=== PATIENT | male | born 1960 | race Caucasian/White ===

== ENCOUNTER 2022-02-16 11:07 | Outpatient (CLI) | payer OTHER | END 2022-02-16 11:08 | disposition home or self-care (01) | LOC: BICRAD 11:07 | PROVIDERS: ATTEND Internal Medicine | DX: Z02.71 Encounter for disability determination (principal); M47.816 Spondylosis without myelopathy or radiculopathy, lumbar region; Z87.81 Personal history of (healed) traumatic fracture | CPT/HCPCS: 71046; 72100 ==

== ENCOUNTER 2022-03-24 13:26 | Emergency (ER) | payer SELFPAY ==
[2022-03-24] MEDS ORDERED: Ketorolac Tromethamine 30 MG/ML VIAL ONE (15:32)
== END 2022-03-24 16:05 | disposition home or self-care (01) ==
LOC: ERS 13:26
DX: M25.511 Pain in right shoulder (principal); S92.321D Displaced fracture of second metatarsal bone, right foot, subsequent encounter for fracture with routine healing; S92.331D Displaced fracture of third metatarsal bone, right foot, subsequent encounter for fracture with routine healing; I10 Essential (primary) hypertension; J44.9 Chronic obstructive pulmonary disease, unspecified; X58.XXXD Exposure to other specified factors, subsequent encounter
CPT/HCPCS: 36416; 96372; J1885

== ENCOUNTER 2023-03-28 11:39 | Emergency (ER) | payer OTHER ==
[2023-03-28 12:21] LABS: #Basophils 0.1 thou/uL (0.0-0.2); #Eosinphils 0.2 thou/uL (0.0-0.7); #Monocytes 0.8 thou/uL (0.11-0.59); #Neutrophils 5.4 thou/uL (1.40-6.50); %Eosinophils 2.3 % (0.0-10.0); %Lymphocytes 14.6 % (21.0-51.0); %Monocytes 10.8 % (0.0-10.0); %Neutrophils 70.6 % (42.0-75.0); Hemoglobin 10.8 g/dL (14.0-18.0); Mean Corpuscular HGB CONC 33.4 g/dL (32.0-36.0); Mean Corpuscular Hemoglobin 33.3 pg (27.0-31.0); Mean Corpuscular Volume 99.7 fl (78.0-98.0); Mean Platelet Volume 8.6 fL (7.4-10.4); Platelet Count 726 10x3/uL (130-400); RBC Distribution Width 13.3 % (11.5-14.5); Red Blood Cell (RBC) Count 3.24 mill/uL (4.70-6.10); White Blood Cell (WBC) Count 7.7 10x3/uL (4.8-10.8)
[2023-03-28 12:44] LABS: ALT (SGPT) 24 U/L (8-55); AST (SGOT) 34 U/L (5-34); Albumin 3.5 g/dL (3.4-4.8); Alkaline Phosphatase 65 U/L (40-110); Anion Gap 11 mmol/L (10-20); BUN (Urea Nitrogen) 8 mg/dL (8.4-25.7); Bilirubin, Total 0.7 mg/dL (0.2-1.2); Calc. Creatinine Clearance 0 mL/min (70-130); Calcium 9.5 mg/dL (7.8-10.44); Carbon Dioxide 27 mmol/L (23-31); Chloride 102 mmol/L (98-107); Estimated GFR 97; Globulin 3.2 g/dL (2.4-3.5); Glucose 89 mg/dL (80-115); Potassium 4.2 mmol/L (3.5-5.1); Protein, Total 6.7 g/dL (5.8-8.1); Sodium 136 mmol/L (136-145)
== END 2023-03-28 13:22 | disposition home or self-care (01) ==
LOC: ERS 11:39
DX: I48.91 Unspecified atrial fibrillation (principal); I10 Essential (primary) hypertension; J44.9 Chronic obstructive pulmonary disease, unspecified; F17.220 Nicotine dependence, chewing tobacco, uncomplicated
CPT/HCPCS: 36415; 80053; 85025; 93005

== ENCOUNTER 2023-07-30 09:04 | Outpatient (CLI) | payer OTHER ==
[2023-07-30 10:46] LABS: Hematocrit 44.9 % (38.8-50.0); Hemoglobin 15.1 g/dL (13.5-17.5); Mean Corpuscular HGB CONC 33.6 g/dL (32.0-36.0); Mean Corpuscular Hemoglobin 32.7 pg (27.0-33.0); Mean Corpuscular Volume 97.2 fl (81.2-95.1); Mean Platelet Volume 9.7 fl (7.4-10.4); Platelet Count 331 10x3/uL (150-450); RBC Distribution Width 13.7 % (11.5-14.5); Red Blood Cell (RBC) Count 4.62 10x6/uL (4.32-5.72); White Blood Cell (WBC) Count 6.9 10x3/uL (3.5-10.5)
[2023-07-30 11:20] LABS: Prothrombin Time 10.4 sec (9.5-12.1)
[2023-07-30 11:26] LABS: ALT (SGPT) 44 U/L (8-55); AST (SGOT) 40 U/L (5-34); Albumin 4.1 g/dL (3.4-4.8); Alkaline Phosphatase 54 U/L (40-110); Anion Gap 14 mmol/L (10-20); BUN (Urea Nitrogen) 13 mg/dL (8.4-25.7); Bilirubin, Direct 0.2 mg/dL (0.1-0.3); Bilirubin, Total 0.5 mg/dL (0.2-1.2); Calc. Creatinine Clearance 0 mL/min (70-130); Calcium 9.4 mg/dL (7.8-10.44); Carbon Dioxide 24 mmol/L (23-31); Chloride 103 mmol/L (98-107); Estimated GFR 99; Glucose 85 mg/dL (80-115); Potassium 4.8 mmol/L (3.5-5.1); Protein, Total 7.1 g/dL (5.8-8.1); Sodium 136 mmol/L (136-145)
== END 2023-07-30 09:05 | disposition home or self-care (01) ==
LOC: LABBT 09:04
PROVIDERS: ATTEND Thoracic Surgery (Cardiothoracic Vascular Surgery)
DX: Z01.818 Encounter for other preprocedural examination (principal); T82.847A Pain due to cardiac prosthetic devices, implants and grafts, initial encounter; I25.10 Atherosclerotic heart disease of native coronary artery without angina pectoris
CPT/HCPCS: 80048; 80076; 85027; 85610; 85730; 93005; 93010

== ENCOUNTER 2023-07-31 06:39 | Day surgery (SDC) | payer OTHER ==
[2023-07-30 09:36] VITALS: BMI 18.4
[2023-07-31] MEDS ORDERED: Fentanyl 250 MCG/5 ML VIAL ONE (06:44)
[2023-07-31] MEDS ORDERED: SUGAMMADEX SODIUM 200 MG/2 ML VIAL ONE ×2 (07:14→08:11)
[2023-07-31] MEDS ORDERED: EPINEPHrine 1 MG/ML VIAL ONE (07:15)
[2023-07-31] MEDS ORDERED: Bupivacaine PF 0.5% 30 ML VIAL ONE (07:15)
[2023-07-31] MEDS ORDERED: CEFAZOLIN 2 GM VIAL ONE (07:23)
[2023-07-31] MEDS ORDERED: Sodium Chloride 0.9% 100 ML ONE (07:23)
[2023-07-31] MEDS ORDERED: Midazolam HCl 2 mg/2 ml Vial ONE (07:24)
[2023-07-31] MEDS ORDERED: PROPOFOL 20 ML ONE (07:32)
[2023-07-31] MEDS ORDERED: PHENYLEPHRINE-NS 100 MCG/ML 10 ML SYRINGE ONE ×2 (07:38→08:05)
[2023-07-31] MEDS ORDERED: Rocuronium Bromide 10 MG/ML (10ML VIAL) ONE ×2 (07:38→08:01)
[2023-07-31] MEDS ORDERED: Lidocaine 1% PF 5 ML VIAL ONE ×2 (07:38→08:01)
[2023-07-31] MEDS ORDERED: Ondansetron PF 4 MG/2 ML Vial ONE ×2 (07:38→08:01)
[2023-07-31] MEDS ORDERED: PROPOFOL 200 MG/20 ML VIAL ONE (07:38)
[2023-07-31] MEDS ORDERED: ePHEDrine Sulfate 50 MG/10 ML VIAL ONE ×2 (07:38→08:04)
== END 2023-07-31 09:42 | disposition home or self-care (01) ==
LOC: SDC 06:39
PROVIDERS: ATTEND Thoracic Surgery (Cardiothoracic Vascular Surgery)
PROC: 0PC00ZZ Extirpation of Matter from Sternum, Open Approach (ICD-10-PCS; principal; 2023-07-31)
DX: T85.698A Other mechanical complication of other specified internal prosthetic devices, implants and grafts, initial encounter (principal); I25.10 Atherosclerotic heart disease of native coronary artery without angina pectoris; Y71.2 Prosthetic and other implants, materials and accessory cardiovascular devices associated with adverse incidents
CPT/HCPCS: 80048; 80076; 85027; 85610; 85730; 93005; 93010; J0171; J2250; J2405; J2704; J3010; J3490; S0020

== ENCOUNTER 2023-09-20 17:16 | Inpatient (IN) | payer OTHER ==
[2023-09-20] MEDS ORDERED: HYDROmorphone 0.5 MG/0.5 ML SYRINGE ONE ×2 (18:22→19:46)
[2023-09-20 18:37] LABS: #Basophils 0.1 thou/uL (0.0-0.2); #Eosinphils 0.1 thou/uL (0.0-0.7); #Neutrophils 9.5 thou/uL (1.40-6.50); %Basophils 0.6 % (0.0-1.0); %Eosinophils 0.7 % (0.0-10.0); %Lymphocytes 12.5 % (21.0-51.0); %Monocytes 8.1 % (0.0-10.0); %Neutrophils 77.1 % (42.0-75.0); Hematocrit 38.3 % (42.0-52.0); Hemoglobin 13.6 g/dL (14.0-18.0); Mean Corpuscular HGB CONC 35.5 g/dL (32.0-36.0); Mean Corpuscular Hemoglobin 34.3 pg (27.0-31.0); Mean Corpuscular Volume 96.5 fl (78.0-98.0); Mean Platelet Volume 9.1 fL (7.4-10.4); Platelet Count 285 10x3/uL (130-400); RBC Distribution Width 12.7 % (11.5-14.5); Red Blood Cell (RBC) Count 3.97 mill/uL (4.70-6.10); White Blood Cell (WBC) Count 12.3 10x3/uL (4.8-10.8)
[2023-09-20 18:58] LABS: INR-International Normal Ratio 1.1; PTT 31.5 sec (22.9-36.1); Prothrombin Time 14.5 sec (12.0-14.7)
[2023-09-20 19:00] LABS: ALT (SGPT) 67 U/L (8-55); AST (SGOT) 64 U/L (5-34); Albumin 3.9 g/dL (3.4-4.8); Alkaline Phosphatase 56 U/L (40-110); Anion Gap 14 mmol/L (10-20); BUN (Urea Nitrogen) 16 mg/dL (8.4-25.7); Bilirubin, Total 0.9 mg/dL (0.2-1.2); Calc. Creatinine Clearance 0 mL/min (70-130); Calcium 8.9 mg/dL (7.8-10.44); Carbon Dioxide 23 mmol/L (23-31); Chloride 103 mmol/L (98-107); Estimated GFR 81; Glucose 98 mg/dL (80-115); Potassium 3.7 mmol/L (3.5-5.1); Protein, Total 6.9 g/dL (5.8-8.1); Sodium 136 mmol/L (136-145)
[2023-09-20] MEDS ORDERED: Ondansetron PF 4 MG/2 ML Vial IVP PRN (19:39)
[2023-09-20] MEDS ORDERED: Dextrose 5% in Water 1,000 ML IV PRN (19:39)
[2023-09-20] MEDS ORDERED: Glucagon 1 MG/ML KIT IM PRN (19:39)
[2023-09-20] MEDS ORDERED: TETANUS, DIPHTHERIA TOX,ADULT (TDVAX) 0.5 ML VIAL IM ONE (19:39)
[2023-09-20] MEDS ORDERED: Dextrose 50% Abboject 50 ML SYRINGE SLOW IVP PRN (19:39)
[2023-09-20] MEDS ORDERED: Albuterol 200 PUFF (6.7GM INHALER) INH PRN (19:44)
[2023-09-20] MEDS ORDERED: Enoxaparin 30 MG (0.3 mL) SYRINGE SC SCH (21:00)
[2023-09-20] MEDS: traMADol HCl 50 MG TAB PO PRN (21:14)
[2023-09-20] MEDS: Morphine 4 MG/ML VIAL SLOW IVP PRN ×2 (21:15→23:07)
[2023-09-20] MEDS: Metoprolol Tartrate 50 MG TAB PO SCH (21:16)
[2023-09-20] MEDS: Famotidine/PF 20 mg/2ml Vial SLOW IVP SCH (21:16)
[2023-09-20] MEDS: Atorvastatin Calcium 40 MG TAB PO SCH (21:16)
[2023-09-21 03:07] VITALS: BMI 20.9
[2023-09-21] MEDS: Morphine 4 MG/ML VIAL SLOW IVP PRN ×4 (03:24→21:43)
[2023-09-21] MEDS: traMADol HCl 50 MG TAB PO PRN ×4 (03:25→23:22)
[2023-09-21] MEDS ORDERED: fentaNYL 50 mcg/mL 1 mL Vial ONE (06:24)
[2023-09-21] MEDS ORDERED: Lidocaine 1% PF 5 ML VIAL ONE (06:24)
[2023-09-21] MEDS ORDERED: SUGAMMADEX SODIUM 200 MG/2 ML VIAL ONE (06:24)
[2023-09-21] MEDS ORDERED: Rocuronium Bromide 10 MG/ML (10ML VIAL) ONE (06:24)
[2023-09-21] MEDS ORDERED: Ondansetron PF 4 MG/2 ML Vial ONE (06:24)
[2023-09-21] MEDS ORDERED: Dexamethasone 4 mg/ml Vial ONE (06:24)
[2023-09-21] MEDS ORDERED: PROPOFOL 20 ML ONE (06:24)
[2023-09-21] MEDS ORDERED: Midazolam HCl 2 mg/2 ml Vial ONE (06:37)
[2023-09-21] MEDS ORDERED: CEFAZOLIN 2 GM in Sodium Chloride 0.9% 100 ML IVPB SCH (07:15)
[2023-09-21] MEDS ORDERED: Sodium Chloride 0.9% 100 ML ONE (07:20)
[2023-09-21] MEDS ORDERED: CEFAZOLIN 2 GM VIAL ONE (07:20)
[2023-09-21] MEDS ORDERED: PHENYLEPHRINE-NS 100 MCG/ML 10 ML SYRINGE ONE ×2 (07:43→08:19)
[2023-09-21] MEDS: Famotidine/PF 20 mg/2ml Vial SLOW IVP SCH ×3 (07:47→20:20)
[2023-09-21] MEDS: Aspirin 81 mg Enteric Coated Tablet PO SCH ×2 (07:47→09:51)
[2023-09-21] MEDS: Metoprolol Tartrate 50 MG TAB PO SCH ×3 (07:47→20:20)
[2023-09-21] MEDS ORDERED: Promethazine HCl 25 MG/ML VIAL IM PRN (09:12)
[2023-09-21] MEDS ORDERED: Ondansetron HCl/PF 4 MG/2 ML Vial IVP PRN (09:12)
[2023-09-21] MEDS: Acetaminophen 325 MG TAB PO PRN ×2 (09:53→17:44)
[2023-09-21] MEDS: CEFAZOLIN 2 GM in Sodium Chloride 0.9% 100 ML IVPB SCH ×2 (16:43→23:22)
[2023-09-21] MEDS: Enoxaparin 40 MG (0.4 mL) SYRINGE SC SCH (20:20)
[2023-09-21] MEDS: Atorvastatin Calcium 40 MG TAB PO SCH (20:20)
[2023-09-22] MEDS: Morphine 4 MG/ML VIAL SLOW IVP PRN ×3 (04:37→21:16)
[2023-09-22] MEDS: Metoprolol Tartrate 50 MG TAB PO SCH ×3 (08:54→21:16)
[2023-09-22] MEDS: Famotidine/PF 20 mg/2ml Vial SLOW IVP SCH ×2 (08:54→21:16)
[2023-09-22] MEDS: traMADol HCl 50 MG TAB PO PRN ×3 (08:54→23:43)
[2023-09-22] MEDS: Aspirin 81 mg Enteric Coated Tablet PO SCH (08:54)
[2023-09-22 09:14] LABS: #Basophils 0.1 thou/uL (0.0-0.2); #Eosinphils 0.1 thou/uL (0.0-0.7); #Neutrophils 5.2 thou/uL (1.40-6.50); %Basophils 0.7 % (0.0-1.0); %Eosinophils 0.9 % (0.0-10.0); %Lymphocytes 21.9 % (21.0-51.0); %Monocytes 12.1 % (0.0-10.0); Hematocrit 28.1 % (42.0-52.0); Hemoglobin 9.6 g/dL (14.0-18.0); Mean Corpuscular HGB CONC 34.2 g/dL (32.0-36.0); Mean Corpuscular Hemoglobin 33.7 pg (27.0-31.0); Mean Corpuscular Volume 98.6 fl (78.0-98.0); Mean Platelet Volume 9.5 fL (7.4-10.4); Platelet Count 181 10x3/uL (130-400); RBC Distribution Width 12.7 % (11.5-14.5); Red Blood Cell (RBC) Count 2.85 mill/uL (4.70-6.10); White Blood Cell (WBC) Count 8.1 10x3/uL (4.8-10.8)
[2023-09-22] MEDS: Enoxaparin 40 MG (0.4 mL) SYRINGE SC SCH (21:16)
[2023-09-22] MEDS: Atorvastatin Calcium 40 MG TAB PO SCH (21:16)
[2023-09-23] MEDS: Morphine 4 MG/ML VIAL SLOW IVP PRN ×2 (02:29→17:59)
[2023-09-23] MEDS: traMADol HCl 50 MG TAB PO PRN ×3 (05:29→20:09)
[2023-09-23 08:02] LABS: #Basophils 0.1 thou/uL (0.0-0.2); #Eosinphils 0.1 thou/uL (0.0-0.7); #Monocytes 1.8 thou/uL (0.11-0.59); #Neutrophils 6.6 thou/uL (1.40-6.50); %Basophils 0.7 % (0.0-1.0); %Eosinophils 0.7 % (0.0-10.0); %Lymphocytes 14.3 % (21.0-51.0); %Monocytes 17.7 % (0.0-10.0); Hematocrit 27.5 % (42.0-52.0); Hemoglobin 9.2 g/dL (14.0-18.0); Mean Corpuscular HGB CONC 33.5 g/dL (32.0-36.0); Mean Corpuscular Hemoglobin 33.1 pg (27.0-31.0); Mean Corpuscular Volume 98.9 fl (78.0-98.0); Mean Platelet Volume 9.8 fL (7.4-10.4); Platelet Count 171 10x3/uL (130-400); RBC Distribution Width 12.5 % (11.5-14.5); Red Blood Cell (RBC) Count 2.78 mill/uL (4.70-6.10)
[2023-09-23] MEDS: Aspirin 81 mg Enteric Coated Tablet PO SCH (08:55)
[2023-09-23] MEDS: Famotidine/PF 20 mg/2ml Vial SLOW IVP SCH ×2 (08:55→20:08)
[2023-09-23] MEDS: Metoprolol Tartrate 50 MG TAB PO SCH ×2 (08:55→20:08)
[2023-09-23] MEDS: Atorvastatin Calcium 40 MG TAB PO SCH (20:08)
[2023-09-23] MEDS: Enoxaparin 40 MG (0.4 mL) SYRINGE SC SCH (20:08)
[2023-09-24] MEDS: traMADol HCl 50 MG TAB PO PRN ×3 (03:55→20:15)
[2023-09-24 04:41] LABS: #Basophils 0.1 thou/uL (0.0-0.2); #Eosinphils 0.1 thou/uL (0.0-0.7); #Monocytes 1.7 thou/uL (0.11-0.59); #Neutrophils 7.3 thou/uL (1.40-6.50); %Basophils 0.6 % (0.0-1.0); %Eosinophils 0.5 % (0.0-10.0); %Lymphocytes 17.7 % (21.0-51.0); %Monocytes 14.8 % (0.0-10.0); Hematocrit 24.7 % (42.0-52.0); Hemoglobin 8.4 g/dL (14.0-18.0); Mean Corpuscular Hemoglobin 33.6 pg (27.0-31.0); Mean Corpuscular Volume 98.8 fl (78.0-98.0); Mean Platelet Volume 9.9 fL (7.4-10.4); Platelet Count 182 10x3/uL (130-400); RBC Distribution Width 12.4 % (11.5-14.5); White Blood Cell (WBC) Count 11.1 10x3/uL (4.8-10.8)
[2023-09-24] MEDS: Famotidine/PF 20 mg/2ml Vial SLOW IVP SCH ×2 (09:32→20:09)
[2023-09-24] MEDS: Aspirin 81 mg Enteric Coated Tablet PO SCH (09:32)
[2023-09-24] MEDS: Metoprolol Tartrate 50 MG TAB PO SCH ×2 (09:32→20:09)
[2023-09-24] MEDS: Enoxaparin 40 MG (0.4 mL) SYRINGE SC SCH (20:09)
[2023-09-24] MEDS: Atorvastatin Calcium 40 MG TAB PO SCH (20:09)
[2023-09-25] MEDS: traMADol HCl 50 MG TAB PO PRN ×2 (03:55→09:51)
[2023-09-25] MEDS: Aspirin 81 mg Enteric Coated Tablet PO SCH (09:49)
[2023-09-25] MEDS: Famotidine/PF 20 mg/2ml Vial SLOW IVP SCH (09:49)
[2023-09-25] MEDS: Metoprolol Tartrate 50 MG TAB PO SCH (09:49)
[2023-09-25 11:26] VITALS: BP 122/72; TEMP 98
[2023-09-25] MEDS: Acetaminophen 325 MG TAB PO PRN (14:32)
== END 2023-09-25 16:01 | disposition home or self-care (01) | DRG 482 ==
LOC: ERS 17:16 → SURG A 19:45 → OBSVTOIN 19:45
PROVIDERS: ADMIT Surgery; ATTEND Surgery
PROC: 0QS706Z Reposition Left Upper Femur with Intramedullary Internal Fixation Device, Open Approach (ICD-10-PCS; principal; 2023-09-21)
DX: S72.22XA Displaced subtrochanteric fracture of left femur, initial encounter for closed fracture (principal); W11.XXXA Fall on and from ladder, initial encounter; I25.10 Atherosclerotic heart disease of native coronary artery without angina pectoris; I48.91 Unspecified atrial fibrillation; Z95.1 Presence of aortocoronary bypass graft; Z98.890 Other specified postprocedural states; F17.200 Nicotine dependence, unspecified, uncomplicated; Z79.899 Other long term (current) drug therapy; Z79.82 Long term (current) use of aspirin
CPT/HCPCS: 36415; 70450; 71045; 72125; 72170; 80053; 85025; 85610; 85730; 86850; 86900; 86901; 90714; 96374; 96376; C1713; J1100; J1170; J1650; J2250; J2270; J2405; J2704; J3010; J3490; S0028